=== PATIENT | female | born 2000 | race Two or more races ===

== ENCOUNTER 2019-10-22 22:49 | Emergency (ER) | payer BC ==
[~2019-10-22] VITALS: Ht 152.4 cm; Wt 59.9 kg
--- NOTE | 2019-10-22 23:05 | NUR ---
THIS IS A 19 YO FEMALE COMING IN FOR"DARK ORANGE/EZEKIEL COLORED URINE" STARTING FRIDAY, RIOS/DIZZINESS, AND INTERMITTENT COUGH X3 DAYS. PATIENT DENIES PAIN WITH URINATION, STATES "IT'S JUST UNCOMFORTABLE AFTER I PEE", DENIES FLANK PAIN/ABD PAIN, DENIES N/V/D. A&OX4, VSS, MONITORING IN PLACE. CALL LIGHT IN REACH. ERP TO ROOM FOR EVAL
[2019-10-22] MEDS ORDERED: ACETAMINOPHEN 500 MG TABLET ONE (23:12)
[2019-10-22] MEDS ORDERED: ACETAMINOPHEN 500 MG TABLET PO ONE (23:30)
[2019-10-22] MEDS ORDERED: SODIUM CHLORIDE FLUSH 10ML SYR IVF ONE (23:30)
[2019-10-22] MEDS ORDERED: SODIUM CHLORIDE 0.9% 1,000ML IVBOLUS ONE (23:30)
--- NOTE | 2019-10-22 23:31 | NUR ---
PIV PLACED, LABS DRAWN, IVF STARTED. UA COLLECTED AND SENT TO LAB
[2019-10-22 23:40] LABS: HCG UR SG 1.021 (1.003-1.030)
[2019-10-22 23:42] LABS: CULTURE INDICATED? YES; MICROSCOPIC INDICATED
[2019-10-22 23:51] LABS: ALBUMIN 3.9 g/dL (3.4-5.0); ANION GAP 9 mmol/L (5-15); CHLORIDE 104 mmol/L (98-107); CREATININE 0.76 mg/dL (0.55-1.02)
[2019-10-23 00:12] LABS: MEAN CORPUSCULAR HEMOGLOBIN 31.9 pg (27.0-34.8); MEAN CORPUSCULAR HGB CONC 33.1 g/dL (32.4-35.8); MEAN CORPUSCULAR VOLUME 96.2 fL (80-100); MEAN PLATELET VOLUME 8.5 fL (7.4-10.4); PLATELET COUNT 267 x10^3/uL (130-400); RED CELL DISTRIBUTION WIDTH 14.2 % (9.6-15.2)
[2019-10-23 00:34] LABS: MD YES
[2019-10-23 00:35] LABS: LYMPHS% (MANUAL) 35 % (22-44); METAMYELOCYTES# (MANUAL) 0.36 x10^3/uL (0-0); METAMYELOCYTES% (MANUAL) 3 % (0-1); MONOS#(MANUAL) 2.16 x10^3/uL (0.3-2.7); MONOS% (MANUAL) 18 % (2-9); MYELOCYTES# (MANUAL) 0.12 x10^3/uL (0-0); MYELOCYTES% (MANUAL) 1 % (0-0); REACTIVE LYMPHS # (MANUAL) 0.36 x10^3/uL (0-0); REACTIVE LYMPHS % (MANUAL) 3 % (0-0); SEG#(MANUAL) 4.32 x10^3/uL (1.8-8); SEGS% (MANUAL) 36 % (42-75)
[2019-10-23 00:37] LABS: OTHER CELLS # (MANUAL) 0.24 x10^3/uL (0-0); OTHER CELLS % (MANUAL) 2 % (0-0)
[2019-10-23 00:38] LABS: BAND#(MANUAL) 0.36 x10^3/uL; BANDS%(MANUAL) 3 % (0-7); NRBC % (MANUAL) 1 % (0-1)
[2019-10-23 00:39] LABS: <PLATELET ESTIMATE> ADEQUATE; ANISOCYTOSIS 1+; POLYCHROMASIA 1+
[2019-10-23 00:55] LABS: ALBUMIN 3.4 g/dL (3.4-5.0); BILIRUBIN, DIRECT 5.4 mg/dL (0.1-0.2)
[2019-10-23 00:57] LABS: BILIRUBIN,TOTAL 6.4 mg/dL (0.2-1.0); TOTAL PROTEIN 7.1 g/dL (6.4-8.2)
--- NOTE | 2019-10-23 01:25 | NUR ---
TASK RN: BOLUS HUNG PER DR. EUGENE AT THIS TIME PT TO US VIA [facility]
[2019-10-23] MEDS ORDERED: IBUPROFEN 600 MG TABLET ONE (01:28)
[2019-10-23] MEDS ORDERED: SODIUM CHLORIDE 0.9% 1,000ML IVBOLUS ONE (01:30)
[2019-10-23] MEDS ORDERED: IBUPROFEN 600 MG TABLET PO ONE (01:30)
--- NOTE | 2019-10-23 01:30 | NUR ---
PATIENT TO ULTRASOUND
--- NOTE | 2019-10-23 02:00 | NUR ---
PATIENT BACK FROM US, AMBULATORY WITH STEADY GAIT TO RESTROOM. PLACED BACK ON MONITORS. 2ND AND 3RD LITERS OF IVF RUNNING.
[2019-10-23 02:07] VITALS: BP 112/65
--- NOTE | 2019-10-23 02:51 | NUR ---
REPORT FROM ZHANG RAYMOND ASSUMING CARE OF PT AT THIS TIME
--- NOTE | 2019-10-23 03:00 | NUR ---
PT SWABBED FOR COVID, SAMPLE WALKED TO LAB AT THIS TIME.
--- NOTE | 2019-10-23 03:13 | NUR ---
Patient/Caregiver given discharge instructions and they have confirmed that they understand the instructions. Patient ambulatory with steady gait. PIV DC PRIOR TO PT LEAVING FACILITY
== END 2019-10-23 03:26 | disposition home or self-care (01) ==
LOC: ED 23:23
DX: R50.9 Fever, unspecified (principal); Z20.828 Contact with and (suspected) exposure to other viral communicable diseases; R00.0 Tachycardia, unspecified; R10.9 Unspecified abdominal pain
CPT/HCPCS: 36415; 71045; 76700; 80048; 80074; 80076; 81001; 81025; 82040; 83605; 83690; 84145; 85025; 87086; 93005; 99285; J7030; U0001

== ENCOUNTER 2020-12-26 00:16 | Emergency (ER) | payer BC ==
[~2020-12-26] VITALS: Ht 152.4 cm; Wt 60.4 kg
[2020-12-26] MEDS ORDERED: CYCLOBENZAPRINE 10 MG TABLET PO ONE (00:30)
--- NOTE | 2020-12-26 00:37 | NUR ---
PT PRESENTS TO THE ED WITH NUMBESS AND CRAMPING FROM LEFT LEG UP INTO THE LEFT ARM AND HAND. PT IN GOWN, RESTING ON GURNEY, AND PLACED ON CONTINUOUS MONTIORING.
[2020-12-26] MEDS ORDERED: CYCLOBENZAPRINE 10 MG TABLET ONE (00:38)
[2020-12-26 00:47] LABS: BASOPHILS % (AUTO) 0 % (0-1); EOSINOPHILS % (AUTO) 1 % (1-7); LYMPHOCYTES % (AUTO) 31 % (22-44); MEAN CORPUSCULAR HEMOGLOBIN 31.4 pg (27.0-34.8); MEAN CORPUSCULAR HGB CONC 34.7 g/dL (32.4-35.8); MEAN PLATELET VOLUME 8.4 fL (7.4-10.4); MONOCYTES % (AUTO) 5 % (2-9); NEUTROPHILS % (AUTO) 63 % (42-75); PLATELET COUNT 286 x10^3/uL (130-400); RED BLOOD COUNT 4.64 x10^6/uL (3.82-5.3); RED CELL DISTRIBUTION WIDTH 13.4 % (9.6-15.2)
[2020-12-26 00:56] LABS: ANION GAP 9 mmol/L (5-15); CALCIUM 9.1 mg/dL (8.5-10.1); CHLORIDE 105 mmol/L (98-107); CREATININE 0.81 mg/dL (0.55-1.02)
[2020-12-26] MEDS ORDERED: KETOROLAC 30 MG/1 ML IM ONE (01:30)
--- NOTE | 2020-12-26 01:30 | NUR ---
pt resting on gurney, denies needs at this time.
[2020-12-26] MEDS ORDERED: KETOROLAC 30 MG/1 ML ONE (01:33)
[2020-12-26 02:56] VITALS: BP 107/69
== END 2020-12-26 02:57 | disposition home or self-care (01) ==
LOC: ED 00:46
DX: S29.012A Strain of muscle and tendon of back wall of thorax, initial encounter (principal); S46.811A Strain of other muscles, fascia and tendons at shoulder and upper arm level, right arm, initial encounter; X58.XXXA Exposure to other specified factors, initial encounter; Y93.89 Activity, other specified; Y92.89 Other specified places as the place of occurrence of the external cause; Y99.8 Other external cause status
CPT/HCPCS: 36415; 80048; 85025; 96372; 99283; J1885